=== PATIENT | female | born 2005 | race Caucasian/White ===

== ENCOUNTER 2024-09-12 11:04 | Outpatient (CLI) | payer OTHER, SELFPAY ==
--- NOTE | 2024-09-12 11:09 | US_ITS ---
WS: [id number] US pelvic complete* [id number] HISTORY: SECONDARY AMENORRHEA COMPARISON: None available. Uterus: 7.9 cm x 3.6 cm x 2.8 cm. Normal size anteverted uterus. No fibroid or mass. Endometrium: 0.4 cm. Normal endometrium. Right ovary: 3.5 cm x 3.2 cm x 2.7 cm. Normal size and vascularity, no cystic or solid masses. Multiple small peripheral follicles. Follicles are similar size. No mass. Left ovary: 3.7 cm x 1.8 cm x 3.2 cm. Normal size and vascularity, no cystic or solid masses. Numerous small peripheral follicles. No free fluid in the cul-de-sac. US/US pelvic complete* [id number] IMPRESSION: 1. Numerous small peripheral ovarian follicles. Consider polycystic ovarian sy ndrome. 2. Normal endometrium.
== END 2024-09-12 11:05 | disposition home or self-care (01) ==
LOC: RAD 11:07
PROVIDERS: Family Provider Pediatrics Adolescent Medicine; PCP Family Medicine; Visit Provider Family Medicine
DX: N91.1 Secondary amenorrhea (principal); N83.01 Follicular cyst of right ovary; N83.02 Follicular cyst of left ovary
CPT/HCPCS: 76856

== ENCOUNTER 2025-05-07 09:46 | Oncology outpatient (recurring) (ONCR) | payer OTHER, BC, MEDICAID, SELFPAY | END 2025-05-08 23:59 | disposition home or self-care (01) | PROVIDERS: PCP Family Medicine; Visit Provider Family Medicine | DX: O36.0990 Maternal care for other rhesus isoimmunization, unspecified trimester, not applicable or unspecified (principal); Z79.899 Other long term (current) drug therapy | CPT/HCPCS: 96372; J2790 ==

== ENCOUNTER 2025-06-20 11:49 | Outpatient (CLI) | payer BC, MEDICAID, SELFPAY ==
[2025-06-20] VITALS (37 sets, daily range): BP systolic 90–126; BP diastolic 51–84; PULSE 100–141; RESP 16; O2SAT 99–100; BMI 21.6
[2025-06-20 12:43] LABS: Hematocrit 30.3 % (36-47); Hemoglobin 10.00 g/dL (11.27-16.99); Mean Corpuscular HGB Conc 33.0 g/dL (30-55); Mean Corpuscular Hemoglobin 28.6 pg (27-33); Mean Corpuscular Volume 86.6 fl (85-98); Nucleated Red Blood Cells % 0 %; Platelet Count 235 10^3/cmm (157-399); Red Blood Count 3.50 10^6/uL (3.85-5.65); White Blood Count 10.87 10^3/uL (3.29-11.43)
[2025-06-20 13:05] LABS: Alanine Aminotransferase < 5 U/L (0-33); Albumin Level 3.8 g/dL (3.5-5.2); Alkaline Phosphatase 98 U/L (35-105); Anion Gap 17.8 (5-19); Aspartate Amino Transferase 13 U/L (0-32); Blood Urea Nitrogen 7 mg/dL (6-20); Calcium 8.8 mg/dL (8.5-10.5); Carbon Dioxide 20 mmol/L (22-29); Chloride 104 mmol/L (98-107); Globulin 2.6 g/dL (1.3-4.6); Glucose 128 mg/dL (65-115); Osmolality Calculated 286 mOsm/kg (285-295); Potassium 3.8 mmol/L (3.5-5.1); Sodium 138 mmol/L (136-145); Total Protein 6.4 g/dL (6.6-8.7)
--- NOTE | 2025-06-20 13:54 | ECG_ITS ---
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 Measurements Intervals [place] Rate: 105 P: 51 LA: 138 QRS: 49 QRSD: 79 T: 16 QT: 320 QTc: 423 Interpretive Statements SINUS TACHYCARDIA ABNORMAL RHYTHM ECG No previous ECG available for comparison Electronically Signed On 06-20-2025 19:21:38 [employer] by Perfecto Greene M.[email or web address]
== END 2025-06-20 14:25 | disposition home or self-care (01) ==
LOC: OPOB 11:53 → OBGYN 11:53
PROVIDERS: PCP Family Medicine; Visit Provider Family Medicine
DX: O26.899 Other specified pregnancy related conditions, unspecified trimester (principal); Z3A.00 Weeks of gestation of pregnancy not specified; R55 Syncope and collapse; H53.8 Other visual disturbances; R53.1 Weakness
CPT/HCPCS: 36415; 59025; 80053; 85025; 93005; 99211; J7030